=== PATIENT | female | born 1945 | race Caucasian/White ===

== ENCOUNTER 2017-08-13 23:19 | Emergency (ER) | payer OTHER ==
[~2017-08-13] VITALS: Ht 162.6 cm; Wt 58.1 kg
[~2017-08-13 23:19] MED LIST: CIPR500T2 PO; LEXA5TAB PO; METR-1 PO; METR1TAB76 PO
[2017-08-13 23:40] VITALS: BP 144/80; PULSE 100; TEMP 102.2; O2SAT 95
[2017-08-14] MEDS ORDERED: ACETAMINOPHEN 325 MG TAB PO ONE (01:00)
[2017-08-14] MEDS ORDERED: SODIUM CHLORID 0.9% 500 ML INJ 500 ML IV ONE (01:00)
[2017-08-14] MEDS ORDERED: cefTRIAXone INJ 1,000 MG in SODIUM CHLORIDE 0.9% INJ 100 ML IV ONE (01:00)
[2017-08-14 01:15] VITALS: O2SAT 96
--- NOTE | 2017-08-14 01:35 | RADRPT ---
EXAM DATE/TIME: 08/14/2017 00:57 [place] COMPARISON: No previous studies available for comparison. INDICATIONS : Fever, cough. MEDICAL HISTORY : None. SURGICAL HISTORY : None. ENCOUNTER: Initial ACUITY: 3 days PAIN SCORE: 0/10 LOCATION: Bilateral chest FINDINGS: A single view of the chest demonstrates the lungs to be symmetrically hyperaerated without evidence o f mass, infiltrate or effusion. No evidence of pneumothorax. The cardiomediastinal contours are unr emarkable. No fracture of the left clavicle. CONCLUSION: The lungs are hyperaerated but clear. Montrell Nguyễn MD on August 14, 2017 at 1:33 Board Certified Radiologist. This report was verified electronically.
[2017-08-14 01:43] LABS: BILIRUBIN, URINE NEG (NEG); BLOOD, URINE TRACE (NEG); GLUCOSE,URINE NEG (NEG); KETONE, URINE NEG (NEG); NITRITE,URINE NEG (NEG); PH, URINE 5.5 (5.0-8.5); URINE COLOR YELLOW (YELLW/STRAW); URINE LEUKOCYTE ESTERASE NEG (NEG)
[2017-08-14 01:43] LABS: AUTOMATED NEUTROPHIL # 5.5 TH/MM3 (1.8-7.7); BASOPHIL % 0.7 % (0.0-2.0); EOSINOPHIL % 0.2 % (0.0-4.0); HEMATOCRIT 39.4 % (35.0-46.0); HEMOGLOBIN 13.3 GM/DL (11.6-15.3); LYMPH % 13.4 % (9.0-44.0); LYMPHOCYTE # 0.9 TH/MM3 (1.0-4.8); MEAN CELL VOLUME 88.8 FL (80.0-100.0); MEAN CORPUSCULAR HEMOGLOBIN 29.9 PG (27.0-34.0); MEAN CORPUSCULAR HGB CONC 33.7 % (32.0-36.0); MEAN PLATELET VOLUME 7.5 FL (7.0-11.0); MONOCYTE # 0.5 TH/MM3 (0-0.9); NEUT % 78.7 % (16.0-70.0); PLATELET COUNT 207 TH/MM3 (150-450); RED BLOOD COUNT 4.44 MIL/MM3 (4.00-5.30); RED CELL DISTRIBUTION WIDTH 12.3 % (11.6-17.2); WHITE BLOOD COUNT 6.9 TH/MM3 (4.0-11.0)
[2017-08-14 01:48] VITALS: BP 109/74; PULSE 92; RESP 18; O2SAT 96
[2017-08-14 02:12] LABS: MUCUS URINE MOD /lpf (OCC); SQUAMOUS EPITHELIAL CELL URINE 0-5 /hpf (0-5)
[2017-08-14 02:13] LABS: CHLORIDE 99 MEQ/L (98-107); SODIUM (NA) 132 MEQ/L (136-145)
[2017-08-14 02:13] LABS: RBC, URINE 0-3 /hpf (0-3)
[2017-08-14 02:16] LABS: ALBUMIN 3.9 GM/DL (3.4-5.0); BICARBONATE 26.3 MEQ/L (21.0-32.0); CALCIUM 8.4 MG/DL (8.5-10.1); GLUCOSE,RANDOM 103 MG/DL (74-106)
[2017-08-14 02:17] LABS: BLOOD UREA NITROGEN 14 MG/DL (7-18)
[2017-08-14 02:19] LABS: ALT (GPT) 33 U/L (10-53); AST (GOT) 34 U/L (15-37)
[2017-08-14 02:20] LABS: CREATININE 0.71 MG/DL (0.50-1.00); GLOMERULAR FILTRATION RATE 81 ML/MIN (>89)
[2017-08-14 02:21] LABS: TOTAL PROTEIN 7.7 GM/DL (6.4-8.2)
[2017-08-14 02:22] LABS: ALKALINE PHOSPHATASE 84 U/L (45-117)
[2017-08-14 02:27] LABS: TOTAL BILIRUBIN ADULT 0.4 MG/DL (0.2-1.0)
[2017-08-14 03:06] VITALS: BP 100/60; PULSE 88; RESP 18; TEMP 98.8; O2SAT 96
[2017-08-14] MEDS ORDERED: VENTAER INH (03:16)
[2017-08-14] MEDS ORDERED: ZITHTAB PO (03:16)
--- NOTE | 2017-08-14 03:16 | PD ---
HPI Chief Complaint: Cold / Flu Symptoms Time Seen by Provider: 00:52 Travel History International Travel<30 days: No Contact w/Intl Traveler<30days: No Traveled to known affect area: No History of Present Illness HPI 71-year-old female presents to the emergency department for fever cough congestion and myalgias arthralgias since evening. Patient states symptoms began after being out and about the community on . Patient states that she feels she is very sensitive to community-based infections. Patient has taken no medications for her symptoms including did not take any acetaminophen when she identified she had increasing temperature over the past several hours. Patient denies any chest pain or shortness of breath. No nausea no vomiting no diarrhea no abdominal pain no flank pain or dysuria frequency urgency or hematuria. Patient denies any joint pain or swelling or skin rash. PFSH Past Medical History Narrative Medical Arthritis appendectomy cholecystectomy tobacco use alcohol use; nursing notes reviewed Arthritis: Yes Autoimmune Disease: No Anxiety: No Depression: Yes Cancer: No Cardiovascular Problems: No Diminished Hearing: Yes Diverticulitis: Yes Endocrine: No Gastrointestinal Disorders: Yes Genitourinary: No Immune Disorder: No Implanted Vascular Access Dvce: No Musculoskeletal: Yes (ARTHRITIS) Neurologic: No Psychiatric: No Reproductive: No Respiratory: No Immunizations Current: Yes Tetanus Vaccination: < 5 Years Influenza Vaccination: No ?: Not Menopausal: Yes : 4 Para: 0 Miscarriage: 4 : 0 Dilation and Curettage (D&C): Yes Past Surgical History Abdominal Surgery: Yes (GALL BLADDER AND APENDIX REMOVED IN 1973) AICD: No Appendectomy: Yes Cholecystectomy: Yes Joint Replacement: No Pacemaker: No Other Surgery: Yes Social History Alcohol Use: Yes (daily) Tobacco Use: Yes Substance Use: No Allergies-Medications (Allergen,Severity, Reaction): Coded Allergies: clindamycin (Unverified Allergy, Severe, Rash, 08/14/17) procaine (Unverified Allergy, Severe, PASSED OUT, 08/14/17) Reported Meds & Prescriptions Reported Meds & Active Scripts Active No Active Prescriptions or Reported Medications Review of Systems Except as stated in HPI: all other systems reviewed are Neg Physical Exam Narrative GENERAL: Well-developed well-nourished female no acute distress or respiratory distress noted to have fever in triage SKIN: Warm and dry. HEAD: Normocephalic. EYES: No scleral icterus. No injection or drainage. NECK: Supple, trachea midline. No JVD or lymphadenopathy. CARDIOVASCULAR: increased Regular rate and rhythm without murmurs, gallops, or rubs. RESPIRATORY: Breath sounds equal bilaterally. No accessory muscle use. GASTROINTESTINAL: Abdomen soft, non-tender, nondistended. MUSCULOSKELETAL: No cyanosis, or edema. BACK: Nontender without obvious deformity. No CVA tenderness. Data Data Last Documented VS Vital Signs Date Time Temp Pulse Resp B/P (MAP) Pulse Ox O2 Delivery O2 Flow Rate FiO2 08/14/17 01:48 92 18 109/74 (86) 96 Room Air 08/13/17 23:40 102.2 Orders Orders Sepsis Workup Initiated (08/14/17 ) Complete Blood Count With Diff (08/14/17 00:54) Comprehensive Metabolic Panel (08/14/17 00:54) Lactic Acid Sepsis Protocol (08/14/17 00:54) Urinalysis - C+S If Indicated (08/14/17 00:54) Influenzae A/B Antigen (08/14/17 00:54) Blood Culture (08/14/17 00:54) Chest, Single Ap (08/14/17 00:54) Blood Glucose (08/14/17 00:54) Ecg Monitoring (08/14/17 00:54) Iv Access Insert/Monitor (08/14/17 00:54) Oximetry (08/14/17 00:54) Oxygen Administration (08/14/17 00:54) Acetaminophen (Tylenol) (08/14/17 01:00) Ceftriaxone Inj (Rocephin Inj) (08/14/17 01:00) Sodium Chlorid 0.9% 500 Ml Inj (Ns 500 M (08/14/17 01:00) Ed Discharge Order (08/14/17 03:11) Labs Laboratory Tests Test 08/14/17 01:15 08/14/17 01:25 Urine Collection Type CLEAN CATCH Urine Color YELLOW Urine Turbidity CLEAR Urine pH 5.5 Urine Specific [place] GREATER/EQUAL 1.030 Urine Protein TRACE mg/dL Urine Glucose (UA) NEG mg/dL Urine Ketones NEG mg/dL Urine Occult Blood TRACE Urine Nitrite NEG Urine Bilirubin NEG Urine Urobilinogen 1.0 MG/DL Urine Leukocyte Esterase NEG Urine RBC 0-3 /hpf Urine Squamous Epithelial Cells 0-5 /hpf Urine Mucus MOD /lpf Microscopic Urinalysis Comment CULT NOT INDICATED White Blood Count 6.9 TH/MM3 Red Blood Count 4.44 MIL/MM3 Hemoglobin 13.3 GM/DL Hematocrit 39.4 % Mean Corpuscular Volume 88.8 FL Mean Corpuscular Hemoglobin 29.9 PG Mean Corpuscular Hemoglobin Concent 33.7 % Red Cell Distribution Width 12.3 % Platelet Count 207 TH/MM3 Mean Platelet Volume 7.5 FL Neutrophils (%) (Auto) 78.7 % Lymphocytes (%) (Auto) 13.4 % Monocytes (%) (Auto) 7.0 % Eosinophils (%) (Auto) 0.2 % Basophils (%) (Auto) 0.7 % Neutrophils # (Auto) 5.5 TH/MM3 Lymphocytes # (Auto) 0.9 TH/MM3 Monocytes # (Auto) 0.5 TH/MM3 Eosinophils # (Auto) 0.0 TH/MM3 Basophils # (Auto) 0.0 TH/MM3 CBC Comment DIFF FINAL Differential Comment Blood Urea Nitrogen 14 MG/DL Creatinine 0.71 MG/DL Random Glucose 103 MG/DL Total Protein 7.7 GM/DL Albumin 3.9 GM/DL Calcium Level 8.4 MG/DL Alkaline Phosphatase 84 U/L Aspartate Amino Transf (AST/SGOT) 34 U/L Alanine Aminotransferase (ALT/SGPT) 33 U/L Total Bilirubin 0.4 MG/DL Sodium Level 132 MEQ/L Potassium Level 3.6 MEQ/L Chloride Level 99 MEQ/L Carbon Dioxide Level 26.3 MEQ/L Anion Gap 7 MEQ/L Estimat Glomerular Filtration Rate 81 ML/MIN Lactic Acid Level 1.2 mmol/L [facility] Medical Decision Making Medical Screen Exam Complete: Yes Emergency Medical Condition: Yes Medical Record Reviewed: Yes Interpretation(s) CBC & BMP Diagram 08/14/17 01:25 Total Protein 7.7, Albumin 3.9, Calcium Level 8.4 L, Alkaline Phosphatase 84, Aspartate Amino Transf (AST/SGOT) 34, Alanine Aminotransferase (ALT/SGPT) 33, Total Bilirubin 0.4 Vital Signs Date Time Temp Pulse Resp B/P (MAP) Pulse Ox O2 Delivery O2 Flow Rate FiO2 08/14/17 01:48 92 18 109/74 (86) 96 Room Air 08/14/17 01:15 96 08/14/17 01:15 96 Room Air 08/14/17 00:16 18 96 Room Air 08/13/17 23:40 102.2 100 144/80 (101) 95 cxr: nad influenza ag: negative Differential Diagnosis Bronchitis sinusitis pneumonia influenza UTI viral syndrome Narrative Course IV access obtained specimens collected and sent for resulting patient administered weight-based acetaminophen for fever and bolus with normal saline and IV antibiotic Lab values found to be grossly within normal limits and influenza antigen is negative chest x-ray reveals no pneumonia Patient is stable at this time for outpatient management and follow-up with her primary care provider Diagnosis Primary Impression: Bronchitis Referrals: Primary Care Physician call for appointment Patient Instructions: General Instructions Additional Instructions: Increase fluid hydration Monitor temperature every 4 hours with thermometer and take acetaminophen/ Tylenol every 4 hours for fever 100.4F or greater take ibuprofen 600 mg as often as every 6 hours for fever 100.4F or greater Complete course of antibiotic as prescribed Return to the emergency department for any concerns or change in condition Follow-up with her primary care provider Med/Other Pt SpecificInfo: Prescription(s) given Scripts Albuterol 18 GM Inh (Ventolin Hfa 18 GM Inh) 90 Mcg/Act Aer 2 PUFF INH Q4-6H Y for SHORTNESS OF BREATH, #1 INHALER 0 Refills Prov: Crista Mcintyre MD 08/14/17 Azithromycin (Zithromax Z-John) 250 Mg Dspk 250 MG PO DIRECTED for Infection, #1 DSPK 0 Refills 500 MG (2 tabs) day 1, then 1 tab days 2-5. Prov: Crista Mcintyre MD 08/14/17 Disposition: 01 DISCHARGE HOME Condition: Stable Crista Mcintyre MD Aug 14, 2017 03:16
== END 2017-08-14 03:42 | disposition home or self-care (01) ==
LOC: PHED 23:19
DX: J40 Bronchitis, not specified as acute or chronic (principal); M79.1 Myalgia; R05 Cough; Z72.0 Tobacco use
CPT/HCPCS: 71045; 80053; 81001; 83605; 85025; 87040; 87804; 96365; 99284; J0696; J7040